=== PATIENT | female | born 1980 | race Caucasian/White ===

== ENCOUNTER 2022-11-27 15:04 | Emergency (ER) | payer OTHER ==
[2022-11-27 15:27] VITALS: BP 144/77; PULSE 78; RESP 16; TEMP 98.9; BMI 35.1
[2022-11-27] MEDS ORDERED: ALBUTEROL SO4 2.5/IPRATROPIUM 0.5 INH SOL 3 ML VIAL.NEB. NEB ONE ×2 (15:41→15:46)
[2022-11-27] MEDS ORDERED: AZITHROMYCIN 250 MG TABLET PO ONE (16:11)
[2022-11-27] MEDS ORDERED: AMOX TR/POT CLAV 875MG/125MG TABLETS (FP) PO ONE (16:11)
[2022-11-27] MEDS ORDERED: AZITHROMYCIN 500 MG TABLET ONE (16:20)
[2022-11-27] MEDS ORDERED: AMOX TR/POT CLAV 875MG/125MG TABLETS (FP) ONE (16:21)
== END 2022-11-27 16:30 | disposition home or self-care (01) ==
LOC: FER 15:04
PROC: 3E0F7GC Introduction of Other Therapeutic Substance into Respiratory Tract, Via Natural or Artificial Opening (ICD-10-PCS; principal; 2022-11-27)
DX: J18.9 Pneumonia, unspecified organism (principal); R05.9 Cough, unspecified
CPT/HCPCS: 71046-TC-FY; 99283-25